=== PATIENT | female | born 1990 | race Caucasian/White ===

== ENCOUNTER 2022-12-01 10:00 | Inpatient (IN) | payer BC, OTHER ==
[2022-12-01] MEDS: ELECTROLYTE-148 SOLN 1,000 ML IV SCH (11:10)
[2022-12-01 11:35] LABS: INR 0.94 (0.83-1.09); PROTHROMBIN TIME (PATIENT) 10.9 SEC (9.7-13.0)
[2022-12-01 11:38] LABS: ACTIVATED PTT 28.4 SECONDS (25.2-36.5)
[2022-12-01 11:54] LABS: EOS % 0.2 % (0-4.5); HEMATOCRIT 38.2 % (32.4-45.2); HEMOGLOBIN 12.7 GM/dL (10.7-15.3); LYMPH % 12.3 % (8-40); MCH 31.6 pg (25.7-33.7); MCHC 33.1 g/dl (32.0-36.0); MEAN CELL VOLUME 95.4 fl (80-96); MEAN PLT VOLUME 11.3 fl (7.5-11.1); MONO % 6.5 % (3.8-10.2); PLATELET COUNT 150 10^3/uL (134-434); RBC 4.01 M/mm3 (3.60-5.2); RDW 13.1 % (11.6-15.6); WHITE BLOOD COUNT 12.8 K/mm3 (4.0-10.0)
[2022-12-01 12:10] VITALS: BMI 25.8
[2022-12-01 13:05] LABS: BLOOD UREA NITROGEN 12.2 mg/dL (7-18); CALCIUM 8.7 mg/dL (8.5-10.1); POTASSIUM 4.2 mmol/L (3.5-5.1)
[2022-12-01 13:07] LABS: CREATININE 0.6 mg/dL (0.55-1.3)
[2022-12-01 13:19] LABS: POC NITRAZINE POS
[2022-12-01] MEDS ORDERED: morphine SULFATE/PF 1 MG/2 ML (2cc Syringe - QUVA) ONE (20:28)
[2022-12-01] MEDS ORDERED: FENTANYL CITRATE/PF 50 MCG/ML VIAL ONE (20:28)
[2022-12-01] MEDS ORDERED: PHENYLEPHRINE HCL 10 MG/1 ML SINGLE DOSE VIAL ONE (20:31)
[2022-12-01] MEDS ORDERED: SODIUM CHLORIDE 0.9% P/F 10 ML VIAL IJ ONE (20:31)
[2022-12-01] MEDS ORDERED: ceFAZolin SODIUM 1 GM VIAL ONE (20:31)
[2022-12-01] MEDS ORDERED: ONDANSETRON 4 MG/2 ML VIAL ONE (20:31)
[2022-12-01] MEDS ORDERED: SUCCINYLCHOLINE CHLORIDE 200 MG/10 ML SYRINGE ONE (20:32)
[2022-12-01] MEDS ORDERED: ePHEDrine SULFATE 50 MG/1 ML AMPULE ONE (20:32)
[2022-12-01] MEDS ORDERED: OXYTOCIN 10 UNITS/ML VIAL ONE (20:36)
[2022-12-01 21:48] LABS: CORD BASE EXCESS -10.7 mmol/L (0-2); CORD HCO3 18.3 mmHg (20-29); CORD PCO2 52.1 mmHg (30-78); CORD pH 7.163 (7.14-7.44)
[2022-12-01 21:54] LABS: CORD HCO3 20.4 mmHg (20-29); CORD PCO2 74.9 mmHg (30-78); CORD pH 7.053 (7.14-7.44)
[2022-12-01] MEDS ORDERED: OXYTOCIN 20 UNITS in 0.9% NS 20 UNIT/1,000 ML INFUS.BAG IV ONE (23:26)
[2022-12-01] MEDS ORDERED: WITCH HAZEL 50% (TUCKS) 40 PAD/JAR PAD TP PRN (23:40)
[2022-12-01] MEDS ORDERED: METHYLERGONOVINE MALEATE 0.2 MG/1 ML AMP IM PRN (23:40)
[2022-12-01] MEDS ORDERED: BENZOCAINE 28 GM HEMORRHOIDAL OINTMENT TP PRN (23:40)
[2022-12-01] MEDS ORDERED: BENZOCAINE 20% 57 GM BOTTLE TP PRN (23:40)
[2022-12-01] MEDS: OXYTOCIN 20 UNITS in 0.9% NS 20 UNIT/1,000 ML INFUS.BAG IV SCH (23:45)
[2022-12-01] MEDS ORDERED: IBUPROFEN 800 MG/8 ML IJ IVPB ONE (23:56)
[2022-12-01] MEDS: IBUPROFEN 800 MG/8 ML IJ IVPB PRN (23:59)
[2022-12-02 01:10] VITALS: RESP 18
[2022-12-02] MEDS: OXYTOCIN 20 UNITS in 0.9% NS 20 UNIT/1,000 ML INFUS.BAG IV SCH (04:20)
[2022-12-02 09:06] LABS: BASO % 0.1 % (0-2.0); EOS % 0.1 % (0-4.5); HEMATOCRIT 36.7 % (32.4-45.2); HEMOGLOBIN 11.9 GM/dL (10.7-15.3); LYMPH % 10.1 % (8-40); MCH 31.2 pg (25.7-33.7); MCHC 32.5 g/dl (32.0-36.0); MEAN CELL VOLUME 95.9 fl (80-96); MEAN PLT VOLUME 11.4 fl (7.5-11.1); NEUT % 84.7 % (42.8-82.8); PLATELET COUNT 135 10^3/uL (134-434); RBC 3.82 M/mm3 (3.60-5.2); RDW 13.3 % (11.6-15.6); WHITE BLOOD COUNT 16.3 K/mm3 (4.0-10.0)
[2022-12-02] MEDS: PRENATAL VITAMINS W/ FOLIC ACID TABLET (FP) PO SCH (09:35)
[2022-12-02] MEDS: IBUPROFEN 800 MG/8 ML IJ IVPB PRN (09:38)
[2022-12-02] MEDS ORDERED: oxyCODONE HCL 5 MG TABLET PO PRN ×2 (11:40)
[2022-12-02] MEDS: ACETAMINOPHEN 325 MG TABLET (FP) PO PRN ×3 (13:24→22:16)
[2022-12-02] MEDS: IBUPROFEN 600 MG TABLET (FP) PO PRN (17:19)
[2022-12-02] MEDS: SIMETHICONE 80 MG TAB.CHEW (FP) PO PRN ×2 (18:14→22:16)
[2022-12-02] MEDS: ELECTROLYTE-148 SOLN 1,000 ML IV SCH (23:25)
[2022-12-02] MEDS ORDERED: BISACODYL 10 MG SUPP.RECT RC PRN (23:40)
[2022-12-03] MEDS: SIMETHICONE 80 MG TAB.CHEW (FP) PO PRN ×3 (06:31→19:18)
[2022-12-03] MEDS: ACETAMINOPHEN 325 MG TABLET (FP) PO PRN ×4 (06:32→19:18)
[2022-12-03] MEDS: PRENATAL VITAMINS W/ FOLIC ACID TABLET (FP) PO SCH (10:55)
[2022-12-04] MEDS: ACETAMINOPHEN 325 MG TABLET (FP) PO PRN ×4 (01:40→19:15)
[2022-12-04] MEDS: SIMETHICONE 80 MG TAB.CHEW (FP) PO PRN ×3 (01:40→19:15)
[2022-12-04 07:15] LABS: BASO % 0.1 % (0-2.0); EOS % 1.2 % (0-4.5); HEMATOCRIT 40.3 % (32.4-45.2); HEMOGLOBIN 13.4 GM/dL (10.7-15.3); LYMPH % 16.3 % (8-40); MCH 31.9 pg (25.7-33.7); MCHC 33.1 g/dl (32.0-36.0); MEAN CELL VOLUME 96.3 fl (80-96); MEAN PLT VOLUME 10.5 fl (7.5-11.1); MONO % 7.7 % (3.8-10.2); NEUT % 74.7 % (42.8-82.8); PLATELET COUNT 195 10^3/uL (134-434); RBC 4.19 M/mm3 (3.60-5.2); RDW 13.3 % (11.6-15.6); WHITE BLOOD COUNT 11.6 K/mm3 (4.0-10.0)
[2022-12-04] MEDS: PRENATAL VITAMINS W/ FOLIC ACID TABLET (FP) PO SCH (09:24)
[2022-12-04] MEDS: IBUPROFEN 600 MG TABLET (FP) PO PRN (22:51)
[2022-12-05] MEDS: IBUPROFEN 600 MG TABLET (FP) PO PRN ×2 (04:19→08:35)
[2022-12-05] MEDS: PRENATAL VITAMINS W/ FOLIC ACID TABLET (FP) PO SCH (09:06)
[2022-12-05 10:03] VITALS: BP 107/63; PULSE 80; TEMP 98
== END 2022-12-05 13:45 | disposition home or self-care (01) | DRG 788 ==
LOC: JDEL 10:00 → JLDR 10:45 → J3W 12-02 00:22
PROVIDERS: ADMIT Obstetrics & Gynecology; ATTEND Obstetrics & Gynecology
PROC: 10D00Z1 Extraction of Products of Conception, Low, Open Approach (ICD-10-PCS; principal; 2022-12-01)
DX: O36.8330 Maternal care for abnormalities of the fetal heart rate or rhythm, third trimester, not applicable or unspecified (principal); O42.92 Full-term premature rupture of membranes, unspecified as to length of time between rupture and onset of labor; Z3A.38 38 weeks gestation of pregnancy; Z37.0 Single live birth
CPT/HCPCS: 36415; 36600; 80048; 82803; 83986-QW; 85025; 85461; 85610; 85730; 86780; 86850; 86900; 86901; 88307-TC; 94010